=== PATIENT | male | born 1995 | race Two or more races ===

== ENCOUNTER 2016-12-09 08:12 | Day surgery (SDC) | payer OTHER ==
[2016-12-09] VITALS (13 sets, daily range): BP systolic 131–158; BP diastolic 77–98
[~2016-12-09] VITALS: Ht 172.7 cm; Wt 102.1 kg
[2016-12-09] MEDS ORDERED: NORCO 10-325 T1 EACH ORAL (08:50)
--- NOTE | 2016-12-09 09:42 | Pre-Procedure Note/Attestation ---
Pre-Procedure Note/Attestation Complete Prior to Procedure Planned Procedure: left Procedure Narrative: Left ankle syndesmosis repair Indications for Procedure Pre-Operative Diagnosis: Left ankle syndesmosis injury Attestation I attest that I discussed the nature of the procedure; its benefits; risks and complications; and alternatives (and the risks and benefits of such alternatives ), prior to the procedure, with the patient (or the patient's legal senior human resources representative). I attest that, if there was a reasonable possibility of needing a blood transfusion, the patient (or the patient's legal senior human resources representative) was given the [facility] standardized written summary, pursuant to the [place] [employer]hawn Blood Safety Act ([place] Health and Safety Code # 1645, as amended). I attest that I re-evaluated the patient just prior to the surgery and that there has been no change in the patient's H&P, except as documented below: AYAAN ROJAS Dec 09, 2016 09:42
--- NOTE | 2016-12-09 09:43 | Brief Operative Note ---
Immediate Post Operative Note Operative Note Pre-op Diagnosis: Left ankle syndesmosis injury Procedure: Left ankle syndesmosis repair Post-op Diagnosis: same as pre-op Findings: consistent w/pre-op dx studies Surgeon: Lakhwinder Anesthesia: general Specimen: none Complications: none Condition: stable Fluids: 100 cc Estimated Blood Loss: minimal Drains: none Implant(s) used?: Yes AYAAN ROJAS Dec 09, 2016 09:43
[2016-12-09] MEDS ORDERED: Bacitracin 50000 Units Vial ONE (09:44)
[2016-12-09] MEDS ORDERED: Bupivacaine w/Epi 0.5% 30ml Vial INJ ONE (09:44)
[2016-12-09] MEDS ORDERED: Ropivacaine 5mg/ml Vial 30ml INJ ONE (09:59)
[2016-12-09] MEDS ORDERED: fentaNYL 100 mcg/2 mL IV ONE (10:00)
[2016-12-09] MEDS ORDERED: Alfentanil 2ml Inj ONE (10:00)
[2016-12-09] MEDS ORDERED: Lidocaine 1% MPF 10mg/ml 5ml ONE (10:00)
[2016-12-09] MEDS ORDERED: Sodium Chloride 10ml vial INJ ONE (10:00)
[2016-12-09] MEDS ORDERED: Sterile Water Irrig 1000ml IRRIG ONE (10:00)
[2016-12-09] MEDS ORDERED: Propofol 200mg/20ml IV ONE (10:00)
[2016-12-09] MEDS ORDERED: LR 1000ml ONE (10:00)
[2016-12-09] MEDS ORDERED: NS Irrig 1000ml ONE (10:00)
[2016-12-09] MEDS ORDERED: Dexamethasone 4mg/ml vial ONE (10:00)
[2016-12-09] MEDS ORDERED: Bupivacaine 0.5% Inj 30 ml vial INJ ONE (10:38)
[2016-12-09] MEDS ORDERED: LR 1000ml 1,000 ML IVLG SCH (10:43)
--- NOTE | 2016-12-09 10:43 | Anethesia Preoperative Eval ---
Anesthesia Pre-op PMH/ROS General Date of Evaluation: Dec 09, 2016 Time of Evaluation: 09:51 Anesthesiologist: Hannah ASA Score: ASA 2 Mallampati Score Class I : Soft palate, uvula, fauces, pillars visible Class II: Soft palate, uvula, fauces visible Class III: Soft palate, base of uvula visible Class IV: Only hard plate visible Mallampati Classification: Class II Surgeon: Lakhwinder Diagnosis: Fx L Ankle Surgical Procedure: ORIF L Ankle Anesthesia History: none Family History: no anesthesia problems Allergies: Coded Allergies: No Known Allergies (Unverified , 12/08/16) Medications: see eMAR Past Medical History Cardiovascular: Reports: HTN Other: obesity - BMI 37 Anesthesia Pre-op Phys. Exam Physician Exam Last Vital Signs Date Time Temp Pulse Resp B/P (MAP) Pulse Ox O2 Delivery O2 Flow Rate FiO2 12/09/16 08:43 97.0 82 18 132/87 97 Room Air Constitutional: NAD Neurologic: CN 2-12 intact Cardiovascular: RRR Respiratory: CTA Gastrointestinal: S/NT/ND Airway Exam Mallampati Score: Class II ROM: full Teeth: intact Anesthesia Pre-op A/P Risk Assessment & Plan Assessment: ASA 2 Plan: GA, L Sciatic Block, BIS Status Change Before Surgery: No Pre-Antibiotics Dru grams Ancef IV Given Within 1 Hr of Incision: Yes Time Given: 10:14 Saji Young MD Dec 09, 2016 10:43
[2016-12-09] MEDS ORDERED: Midazolam 2mg/2ml Inj IVP PRN (10:45)
[2016-12-09] MEDS ORDERED: Hydromorphone 0.5mg/0.5ml inj IVP PRN (10:45)
[2016-12-09] MEDS ORDERED: fentaNYL 100 mcg/2 mL IV PRN (10:45)
[2016-12-09] MEDS ORDERED: DiphenhydrAMINE 50mg/ml Inj IVP PRN (10:45)
[2016-12-09] MEDS ORDERED: LORazepam Inj 2mg/ml 1ml IV PRN (10:45)
[2016-12-09] MEDS ORDERED: oxyCODONE HCL/Acetaminophen 5/325mg ORAL PRN (10:45)
[2016-12-09] MEDS ORDERED: Atropine Inj 1mg/10ml Syr IV PRN (10:45)
[2016-12-09] MEDS ORDERED: Meperidine 25mg/0.5ml Inj (FOR RIGORS ONLY) IV PRN (10:45)
[2016-12-09] MEDS ORDERED: Metoclopramide 10mg/2ml Inj IVP PRN (10:45)
[2016-12-09] MEDS ORDERED: Ketorolac 60mg Inj IV PRN (10:45)
[2016-12-09] MEDS ORDERED: Norco 7.5mg/325mg tab ORAL PRN (10:45)
[2016-12-09] MEDS ORDERED: Norco 5mg/325mg tab ORAL PRN (10:45)
[2016-12-09] MEDS ORDERED: Ketorolac 30mg Inj IV PRN (10:45)
--- NOTE | 2016-12-09 11:04 | Immediate Post-Op Evaluation ---
Immediate Post-Op Evalulation Immediate Post-Op Evalulation Procedure: ORIF L Ankle Date of Evaluation: Dec 09, 2016 Time of Evaluation: 11:40 IV Fluids: 1100 LR Blood Products: 0 Estimated Blood Loss: 10 Urinary Output: 0 Blood Pressure Systolic: 133 Blood Pressure Diastolic: 88 Pulse Rate: 88 Respiratory Rate: 16 O2 Sat by Pulse Oximetry: 100 Temperature (Fahrenheit): 98.4 Pain Score (1-10): 2 Nausea: No Vomiting: No Complications 0 Patient Status: awake, reacts, patent, extubated, none Hydration Status: adequate Dru Grams Ancef IV Given Within 1 Hr of Incision: Yes Time Given: 10:14 Saji Young MD Dec 09, 2016 11:04
--- NOTE | 2016-12-09 11:04 | 48 Hour Post Anesthesia Eval ---
Post Anesthesia Evaluation Procedure: ORIF L Ankle Date of Evaluation: Dec 09, 2016 Time of Evaluation: 13:46 Blood Pressure Systolic: 134 0: 87 Pulse Rate: 82 Respiratory Rate: 18 Temperature (Fahrenheit): 98.4 O2 Sat by Pulse Oximetry: 100 Airway: patent Nausea: No Vomiting: No Pain Intensity: 2 Hydration Status: adequate Cardiopulmonary Status: Stable Mental Status/LOC: patient returned to baseline Follow-up Care/Observations: 0 Post-Anesthesia Complications: 0 Follow-up care needed: ready to discharge Saji Young MD Dec 09, 2016 11:04
--- NOTE | 2016-12-09 13:50 | Diagnostic Imaging Report ---
Indication: Pain Comparison: None Findings: Fluoroscopic images of the left ankle demonstrate placement of 2 syndesmosis screws. Impression: Intraoperative imaging
--- NOTE | 2016-12-09 22:30 | Operative Note - Dictated ---
DATE OF OPERATION: 12/09/2016 SURGEON: Shayne Keane M.D. OBIEE OBIA SOLUTION ARCHITECT: None. ANESTHESIA: General plus regional. COMPLICATIONS: None. ANTIBIOTIC: Ancef. PREOPERATIVE DIAGNOSIS: Left ankle syndesmotic disruption. POSTOPERATIVE DIAGNOSIS: Left ankle syndesmotic disruption. PROCEDURE PERFORMED: Left ankle syndesmotic reduction with rigid screw fixation (two cortical self-tapping Robert screws). BACKGROUND: The patient sustained a Maisonneuve fracture with significant mortise disruption. All risks, benefits, and alternatives to surgical intervention were discussed in great detail. Risks include, but not limited to bleeding, infection, neurovascular injury, need for additional surgical intervention, failure of pain relief, arthrofibrosis, complications of anesthesia, blood clots, stroke, heart attack, and potentially . He understood these risks, amongst others, and consent was signed. PROCEDURE IN DETAIL: The patient was brought into the operating room and placed supine on the operating table. The left ankle was correctly verified for surgical site and prepped and draped in standard sterile fashion. Fluoroscopic imaging was utilized to confirm appropriate mortise reduction. Using a large pelvic clamp and small incisions over the distal aspect of the medial tibia and the distal aspect of the lateral fibula, the syndesmosis was anatomically reduced. The foot was held in neutral dorsiflexion and 2 parallel screws were placed to keep the mortise reduced. The symmetry was maintained throughout full ankle range of motion on live fluoroscopic imaging. All wounds were copiously irrigated and reapproximated using 4-0 Monocryl in subcuticular fashion. Steri-Strips were used over Mastisol. Dry sterile dressing was applied. He tolerated the procedure well. There were no complications. A fracture boot was secured into position. I attest that I performed the entire operation. He was transferred to recovery in good condition. Shayne Keane M.D. DR: RODRIGUEZ JOB#: [id number] CC: BARRY
== END 2016-12-09 14:15 | disposition home or self-care (01) ==
LOC: SUR 08:12
DX: S82.862A Displaced Maisonneuve's fracture of left leg, initial encounter for closed fracture (principal); X58.XXXA Exposure to other specified factors, initial encounter; Y93.9 Activity, unspecified; Y92.9 Unspecified place or not applicable; I10 Essential (primary) hypertension; E66.9 Obesity, unspecified; Z68.37 Body mass index [BMI] 37.0-37.9, adult
CPT/HCPCS: 27828; 73600; 76001; C1713; J0690; J1100; J1170; J1200; J2250; J2405; J2704; J2795; J3010; J3490; J7120; 94003; 94150